=== PATIENT | male | born 1985 | race Caucasian/White ===

== ENCOUNTER 2022-10-19 21:49 | Emergency (ER) | payer BC, OTHER ==
[2022-10-19] MEDS ORDERED: Tetracaine 0.5% PF 4 ML BOT ONE (22:05)
== END 2022-10-19 22:22 | disposition home or self-care (01) ==
LOC: NAV ERS 21:49
DX: H18.822 Corneal disorder due to contact lens, left eye (principal); F17.210 Nicotine dependence, cigarettes, uncomplicated
CPT/HCPCS: 99283